=== PATIENT | male | born 1990 | race African-American/Black ===

== ENCOUNTER 2019-05-09 00:42 | Emergency (ER) | payer MEDICAID ==
[~2019-05-09] VITALS: Ht 175.3 cm; Wt 91.0 kg
[2019-05-09] MEDS ORDERED: IBUPROFEN 600MG TABLET PO ONE (02:15)
[2019-05-09 02:42] VITALS: BP 115/65
== END 2019-05-09 03:11 | disposition home or self-care (01) ==
LOC: ER 00:42
DX: M54.5 Low back pain (principal); E66.9 Obesity, unspecified; F17.200 Nicotine dependence, unspecified, uncomplicated; Z68.29 Body mass index [BMI] 29.0-29.9, adult
CPT/HCPCS: 99283